=== PATIENT | male | born 1990 | race Caucasian/White ===

== ENCOUNTER 2016-07-31 00:39 | Emergency (ER) | payer OTHER ==
[2016-07-31] MEDS ORDERED: NS 0.9% 1000 ML* 2,000 ML IV ONE (00:50)
[2016-07-31 00:51] VITALS: BP 127/72
[2016-07-31 01:13] LABS: Hematocrit 39 % (42-52); Hemoglobin 13.5 g/dl (14.0-18.0); Mean Corpuscular HGB Conc 34 g/dl (31-36); Mean Corpuscular Hemoglobin 32 pg (27-31); Mean Corpuscular Volume 94 fL (80-94); Mean Platelet Volume 9 um3 (7.4-10.4); Red Blood Count 4.18 10^6/ul (4.0-5.4); Red Cell Distribution Width 13 % (10.5-15); White Blood Count 8.9 10^3/ul (3.5-10.8)
[2016-07-31 01:25] LABS: ALT 20 U/L (7-52); Albumin 4.4 g/dL (3.2-5.2); Alkaline Phosphatase 30 U/L (34-104); BUN/Creatinine Ratio 11.2 (8-20); Blood Urea Nitrogen 12 mg/dL (6-24); CO2 Carbon Dioxide 27 mmol/L (22-32); Calcium 9.9 mg/dL (8.6-10.3); Chloride 105 mmol/L (101-111); EGFR African American 107.4 (>60); EGFR Non-African American 83.5 (>60); Globulin 2.6 g/dL (2-4); Glucose 94 mg/dL (70-100); Sodium 139 mmol/L (133-145)
--- NOTE | 2016-07-31 01:26 | ED ---
yariel Randall Timothy, scribed for David Hanley MD on 07/31/16 at 0056 . Syncope/Near Syncope - HPI Summary HPI Summary: Sagar Montero is a 26 yo male presenting to [facility] with syncope after drinking with his friends at a bar. They state he was shaking on the floor and was unable to stand afterwards. Pt states he over-exerted himself earlier today running, did not drink any water, had minimal rest, and consumed four drinks tonight in addition to some marijuana. He denies any PMx. - History Of Current Complaint Time Seen by Provider: 07/31/16 00:45 Hx Obtained From: Patient Onset/Duration: Sudden Onset, Lasting Minutes, Resolved Timing: Intermittent Episode Lasting - seconds Context: Witnessed, Loss Of Consciousness Activity At Onset: Exertion Associated Head Trauma: No Alleviating Factor(s): Spontaneous Resolution - Allergies/Home Medications Allergies/Adverse Reactions: Allergies Allergy/AdvReac Type Severity Reaction Status Date / Time No Known Allergies Allergy Verified 07/31/16 00:53 Home Medications: Home Medications NK [No Home Medications Reported] 07/31/16 [History Confirmed 07/31/16] PMH/Surg Hx/FS Hx/Imm Hx Previously Healthy: Yes Infectious Disease History: No Infectious Disease History: Denies: Traveled Outside the [place] in Last 30 Days - Family History Known Family History: Positive: Cardiac Disease, Hypertension, Diabetes - Social History Alcohol Use: Weekly Alcohol Amount: 4 drinks Hx Substance Use: Yes Substance Use Type: Reports: Marijuana Substance Use Comment - Amount & Last Used: marijuana, tonight Review of Systems Constitutional: Negative Eyes: Negative ENT: Negative Cardiovascular: Negative Respiratory: Negative Gastrointestinal: Negative Genitourinary: Negative Musculoskeletal: Negative Skin: Negative Positive: Syncope Psychological: Normal All Other Systems Reviewed And Are Negative: Yes Physical Exam Triage Information Reviewed: Yes Vital Signs On Initial Exam: Initial Vitals Temp Pulse Resp BP Pulse Ox 97.4 F 59 12 127/72 100 07/31/16 00:49 07/31/16 00:49 07/31/16 00:49 07/31/16 00:49 07/31/16 00:49 Vital Signs Reviewed: Yes Appearance: Positive: Well-Appearing, No Pain Distress Skin: Positive: Warm Head/Face: Positive: Normal Head/Face Inspection Eyes: Positive: EOMI, ESTEFANIA ENT: Positive: Normal ENT inspection Neck: Positive: Supple Respiratory/Lung Sounds: Positive: Clear to Auscultation, Breath Sounds Present Cardiovascular: Positive: RRR. Negative: Murmur Abdomen Description: Positive: Nontender, Soft Bowel Sounds: Positive: Present Musculoskeletal: Positive: Strength/ROM Intact Neurological: Positive: Sensory/Motor Intact, Alert, Oriented to Person Place, Time Psychiatric: Positive: Affect/Mood Appropriate Diagnostics - Vital Signs Vital Signs Temp Pulse Resp BP Pulse Ox 07/31/16 00:51 97.4 F 59 12 127/72 100 07/31/16 00:49 97.4 F 59 12 127/72 100 - Laboratory Lab Results: Lab Results 07/31/16 07/31/16 Range/Units 01:00 01:00 WBC 8.9 (3.5-10.8) 10^3/ul RBC 4.18 (4.0-5.4) 10^6/ul Hgb 13.5 L (14.0-18.0) g/dl Hct 39 L (42-52) % MCV 94 (80-94) fL MCH 32 H (27-31) pg MCHC 34 (31-36) g/dl RDW 13 (10.5-15) % Plt Count 256 (150-450) 10^3/ul MPV 9 (7.4-10.4) um3 Neut % (Auto) 49.7 (38-83) % Lymph % (Auto) 43.2 (25-47) % [place] % (Auto) 6.0 (1-9) % Eos % (Auto) 0.7 (0-6) % Baso % (Auto) 0.4 (0-2) % Absolute Neuts (auto) 4.5 (1.5-7.7) 10^3/ul Absolute Lymphs (auto) 3.9 (1.0-4.8) 10^3/ul Absolute Monos (auto) 0.5 (0-0.8) 10^3/ul Absolute Eos (auto) 0.1 (0-0.6) 10^3/ul Absolute Basos (auto) 0 (0-0.2) 10^3/ul Absolute Nucleated RBC 0.01 10^3/ul Nucleated RBC % 0.1 Sodium 139 (133-145) mmol/L Potassium Pending Chloride 105 (101-111) mmol/L Carbon Dioxide 27 (22-32) mmol/L Anion Gap Pending BUN 12 (6-24) mg/dL Creatinine 1.07 (0.67-1.17) mg/dL Est GFR ( Amer) 107.4 (>60) Est GFR (Non-Af Amer) 83.5 (>60) BUN/Creatinine Ratio 11.2 (8-20) Glucose 94 (70-100) mg/dL Calcium 9.9 (8.6-10.3) mg/dL Magnesium 2.0 (1.9-2.7) mg/dL Total Bilirubin 0.40 (0.2-1.0) mg/dL AST Pending ALT 20 (7-52) U/L Alkaline Phosphatase 30 L (34-104) U/L Total Protein 7.0 (6.4-8.9) g/dL Albumin 4.4 (3.2-5.2) g/dL Globulin 2.6 (2-4) g/dL Albumin/Globulin Ratio 1.7 (1-3) Serum Alcohol Pending Result Diagrams: 07/31/16 01:00 07/31/16 01:00 Lab Statement: Any lab studies that have been ordered have been reviewed, and results considered in the medical decision making process. - EKG 0057 Cardiac Rate: NL - 64 BPM EKG Interpretation: NSR @ 64 BPM, normal EKG. Re-Evaluation - Re-Evaluation First Eval Change: Improved Course/Dx Assessment/Plan: Sagar Montero is a 26 yo male [facility] syncopal episode which lasted seconds, after exerting himself earlier without water and consuming alcohol. In the ED Pt received IV fluids. After clinical examination, EKG WNL, and review of his lab work, he will be discharged home with polysubstance abuse and near syncope with appropriate instructions. - Diagnoses Provider Diagnoses: Polysubstance abuse, Near syncope Discharge - Discharge Plan Condition: Stable Disposition: HOME Patient Education Materials: Polysubstance Abuse (ED), Near Syncope (ED) Referrals: [facility] PHYSICIAN REFERRAL [Outside] - 2 Days Additional Instructions: Please follow up with the primary care physician provided regarding your visit to the emergency department tonight. Return to the emergency department with any new or recurring symptoms. The documentation as recorded by the yariel parsons Timothy accurately reflects the service I personally performed and the decisions made by me, David Hanley MD.
[2016-07-31 01:29] LABS: AST 36 U/L (13-39); Anion Gap 7 mmol/L (2-11); Potassium 4.2 mmol/L (3.5-5.0)
[2016-07-31 01:30] LABS: Alcohol < 10 mg/dL (<10)
[2016-07-31 03:12] LABS: Benzodiazepine Urine Screen None Detected (None Detect)
== END 2016-07-31 03:08 | disposition home or self-care (01) ==
LOC: EDBD → ED 00:39
DX: F19.10 Other psychoactive substance abuse, uncomplicated (principal); R55 Syncope and collapse
CPT/HCPCS: 36415; 80053; 80307; 80320; 83735; 85025; 93005; 96360; 99282; G0480